=== PATIENT | female | born 2005 | race Caucasian/White ===

== ENCOUNTER → 2024-10-14 10:21 | Outpatient (REF) | payer BC, SELFPAY | LOC: RAD 10:21 | PROVIDERS: ATTENDING PHYSICIAN Family Medicine; FAMILY PHYSICIAN Student in an Organized Health Care Education/Training Program | DX: R59.0 Localized enlarged lymph nodes (principal) | CPT/HCPCS: 76536 ==

== ENCOUNTER → 2024-11-04 13:43 | Outpatient (REF) | payer BC, SELFPAY | LOC: RAD 13:43 | PROVIDERS: ATTENDING PHYSICIAN Family Medicine | DX: R59.0 Localized enlarged lymph nodes (principal); R89.8 Other abnormal findings in specimens from other organs, systems and tissues; R79.82 Elevated C-reactive protein (CRP); D72.10 Eosinophilia, unspecified | CPT/HCPCS: 70492; 71270; 74177; Q9967 ==